=== PATIENT | female | born 1980 | race Caucasian/White ===

== ENCOUNTER 2018-08-08 20:54 | Emergency (ER) | payer OTHER ==
[~2018-08-08] VITALS: Ht 165.1 cm; Wt 204.1 kg
[~2018-08-08 20:54] MED LIST: BENTYL10 MG PO; CLONAZEPAM1 M1 PO; INNOPRAN XL80 MG PO; KEFLEX500 MG PO; LAMICTAL100 MG PO; PRILOSEC20 MG PO; PROTONIX40 MG PO; TYLENOL PM EX-1 EACH; ULTRAM50 MG PO; ZOFRAN ODT4 MG SL
[2018-08-08] MEDS ORDERED: LANTUS SOL100 UNIT/1 SUB-Q (21:17)
[2018-08-08] MEDS ORDERED: TRULICITY0.75 MG/0. SUB-Q (21:17)
[2018-08-08] MEDS ORDERED: SIMVASTATIN40 MG PO (21:18)
[2018-08-08] MEDS ORDERED: METFORMIN HCL500 MG PO (21:18)
[2018-08-08] MEDS ORDERED: PROPRANOLOL HCL80 MG PO (21:21)
[2018-08-08] MEDS ORDERED: MAXALT10 MG PO ×2 (21:22→21:23)
== END 2018-08-08 22:50 | disposition home or self-care (01) ==
LOC: ED 20:54
DX: E11.9 Type 2 diabetes mellitus without complications (principal); Z79.4 Long term (current) use of insulin; K21.9 Gastro-esophageal reflux disease without esophagitis; Z88.0 Allergy status to penicillin; Z79.899 Other long term (current) drug therapy
CPT/HCPCS: 99282